=== PATIENT | male | born 1990 | race African-American/Black ===

== ENCOUNTER 2020-12-22 06:53 | Emergency (ER) | payer SELFPAY ==
[~2020-12-22] VITALS: Ht 175.3 cm; Wt 73.0 kg
[2020-12-22] MEDS ORDERED: ACETAMINOPHEN 325MG TABLET PO ONE (07:30)
[2020-12-22 07:35] VITALS: BP 114/72
== END 2020-12-22 08:22 | disposition home or self-care (01) ==
LOC: EDBD → ER 06:53
DX: S05.12XA Contusion of eyeball and orbital tissues, left eye, initial encounter (principal); Z87.828 Personal history of other (healed) physical injury and trauma; Z90.2 Acquired absence of lung [part of]; Y04.0XXA Assault by unarmed brawl or fight, initial encounter; Y93.89 Activity, other specified; Y92.018 Other place in single-family (private) house as the place of occurrence of the external cause
CPT/HCPCS: 99282; Z7610

== ENCOUNTER 2020-12-22 08:40 | Emergency (ER) | payer SELFPAY ==
[~2020-12-22] VITALS: Ht 175.3 cm; Wt 73.0 kg
[2020-12-22 08:42] VITALS: BP 127/79
== END 2020-12-22 09:23 | disposition left against medical advice (07) ==
LOC: ER 08:47
DX: Z53.21 Procedure and treatment not carried out due to patient leaving prior to being seen by health care provider (principal)